=== PATIENT | female | born 1970 | race Caucasian/White ===

== ENCOUNTER → 2021-01-01 | Outpatient (CLI) | payer OTHER ==
[~2021-01-01] MED LIST: BUPRENORPHIN-N1 EACH SL; CYMBALTA 30 MG30 MG PO; IBUPROFEN200 M1 PO; LYRICA100 MG PO; NYSTATIN1000000 UN TOP; OMEPRAZOLE20 MG PO; SYNTHROID 137137 MCG PO; TOPAMAX50 MG PO; VITAMIN D21250 MCG PO
[2021-01-01 12:04] LABS: HEMOGLOBIN 12.8 gm/dl (12.3-15.3); RED BLOOD COUNT 4.37 M/UL (4.00-5.10); WHITE BLOOD COUNT 9.5 K/UL (4.5-11.0)
== END ==
LOC: OPSV2 11:00 → EDSTATUS 11:00 → OPSV2 11:14
PROVIDERS: Orthopaedic Surgery
DX: Z01.818 Encounter for other preprocedural examination (principal); M17.11 Unilateral primary osteoarthritis, right knee
CPT/HCPCS: 36415; 80048; 81001; 85025; 85652; 86140; 87077; 87081; 87086; 87186; 93005

== ENCOUNTER → 2021-05-13 | Outpatient (CLI) | payer OTHER ==
[~2021-05-13] MED LIST changes: +FAMOTIDINE20 MG PO
[2021-05-13 10:07] LABS: RED BLOOD COUNT 4.71 M/UL (4.00-5.10); WHITE BLOOD COUNT 7.3 K/UL (4.5-11.0)
[2021-05-13 10:47] LABS: BUN/CREATININE RATIO 12 (0-10)
== END ==
LOC: OPSV2 08:54 → EDSTATUS 09:00
PROVIDERS: Orthopaedic Surgery
DX: Z01.818 Encounter for other preprocedural examination (principal); M17.11 Unilateral primary osteoarthritis, right knee
CPT/HCPCS: 71046; 80048; 81001; 83036; 85025; 85652; 86140; 87081; 93005

== ENCOUNTER → 2021-05-24 | Outpatient (CLI) | payer OTHER ==
[~2021-05-24] MED LIST changes: +ELIQUIS2.5 MG PO; +IBU800 MG PO; -IBUPROFEN200 M1 PO
[2021-05-24 12:43] LABS: BUN/CREATININE RATIO 15 (0-10)
== END ==
LOC: LAB 11:32
PROVIDERS: Orthopaedic Surgery
DX: Z01.812 Encounter for preprocedural laboratory examination (principal)
CPT/HCPCS: 80048; 86850; 86900; 86901

== ENCOUNTER 2021-05-25 05:39 | Day surgery (SDC) | payer OTHER ==
[~2021-05-25] VITALS: Ht 165.1 cm; Wt 127.0 kg
[~2021-05-25 05:39] MED LIST changes: -ELIQUIS2.5 MG PO
[2021-05-26 08:35] LABS: HEMOGLOBIN 11.9 gm/dl (12.3-15.3); RED BLOOD COUNT 4.17 M/UL (4.00-5.10); WHITE BLOOD COUNT 12.4 K/UL (4.5-11.0)
[2021-05-26 09:27] LABS: BUN/CREATININE RATIO 21 (0-10)
[2021-05-27 07:08] LABS: HEMOGLOBIN 11.6 gm/dl (12.3-15.3); RED BLOOD COUNT 3.97 M/UL (4.00-5.10); WHITE BLOOD COUNT 10.4 K/UL (4.5-11.0)
[2021-05-27 07:43] LABS: BUN/CREATININE RATIO 15 (0-10)
[2021-05-28 08:03] LABS: BUN/CREATININE RATIO 16 (0-10)
[2021-05-28 08:50] LABS: HEMOGLOBIN 11.1 gm/dl (12.3-15.3); RED BLOOD COUNT 3.84 M/UL (4.00-5.10)
[2021-05-28] MEDS ORDERED: ELIQUIS2.5 MG PO (09:20)
--- NOTE | 2021-05-28 14:09 | NUR ---
REPORT CALLED TO MACI QUINTERO SHE STATES THAT THE PATIENT NEEDS A NEGATIVE COVID19 TEST PRIOR TO DISCHARGE. SPECIMEN ORDERD.
== END 2021-05-29 00:22 | disposition home or self-care (01) ==
LOC: OR 05:39 → EDSTATUS 07:30 → M/S 13:25 → OR 05-28 21:35
PROVIDERS: Orthopaedic Surgery
DX: M17.0 Bilateral primary osteoarthritis of knee (principal); G89.29 Other chronic pain; E03.9 Hypothyroidism, unspecified; F41.9 Anxiety disorder, unspecified; F32.A Depression, unspecified; E66.01 Morbid (severe) obesity due to excess calories; J44.9 Chronic obstructive pulmonary disease, unspecified; F17.210 Nicotine dependence, cigarettes, uncomplicated; F11.20 Opioid dependence, uncomplicated; K21.9 Gastro-esophageal reflux disease without esophagitis; B95.62 Methicillin resistant Staphylococcus aureus infection as the cause of diseases classified elsewhere; Z23 Encounter for immunization; Z98.84 Bariatric surgery status; Z68.42 Body mass index [BMI] 45.0-49.9, adult; Z79.899 Other long term (current) drug therapy; Z20.822 Contact with and (suspected) exposure to COVID-19
CPT/HCPCS: 36415; 73560; 80048; 85025; 97110; 97110-GP-CQ; 97116; 97116-GP-CQ; 97162; 97165; 97530; 97530-GP-CQ; 97535; C1776; J0171; J0592; J0690; J1100; J1170; J1200; J1885; J2250; J2370; J2400; J2704; J2710; J2795; J3370; J3475; J7050; J7120; U0002